=== PATIENT | female | born 1970 | race Two or more races ===

== ENCOUNTER → 2019-09-20 | Day surgery (SDC) | payer MEDICARE ==
[2019-09-20] VITALS (10 sets, daily range): BP systolic 115–160; BP diastolic 8–94
[~2019-09-20] VITALS: Ht 160 cm; Wt 53.1 kg
[~2019-09-20] MED LIST: Bacitracin 50000 Units Vial ONE; Bupivacaine 0.25% Inj 30ml INJ ONE; Ketorolac 30mg Inj ONE; LR 1000ml 1,000 ML IVLG SCH; LR 1000ml ONE; Lidocaine 1% Plain 30 ml INJ ONE; Meperidine 50mg/ml Inj(FOR RIGORS ONLY) IV PRN; Midazolam 2mg/2ml Inj ONE; NS Irrig 1000ml ONE; Propofol 200mg/20ml IV ONE; Sterile Water Irrig 1000ml IRRIG ONE; fentaNYL 100 mcg/2 mL IV ONE
--- NOTE | 2019-09-20 10:21 | Pre-Procedure Note/Attestation ---
Pre-Procedure Note/Attestation Complete Prior to Procedure Planned Procedure: right Procedure Narrative: Excision of right thumb cyst Attestation I attest that I discussed the nature of the procedure; its benefits; risks and complications; and alternatives (and the risks and benefits of such alternatives ), prior to the procedure, with the patient (or the patient's legal volunteer patient representative). I attest that, if there was a reasonable possibility of needing a blood transfusion, the patient (or the patient's legal volunteer patient representative) was given the [facility] standardized written summary, pursuant to the Jhonatan Ryan Blood Safety Act ([place] Health and Safety Code # 1645, as amended). I attest that I re-evaluated the patient just prior to the surgery and that there has been no change in the patient's H&P, except as documented below: Lew Ku MD Sep 20, 2019 10:20
--- NOTE | 2019-09-20 11:43 | Anethesia Preoperative Eval ---
Anesthesia Pre-op PMH/ROS General Date of Evaluation: Sep 20, 2019 Time of Evaluation: 10:58 Anesthesiologist: Mayito ASA Score: ASA 2 Mallampati Score Class I : Soft palate, uvula, fauces, pillars visible Class II: Soft palate, uvula, fauces visible Class III: Soft palate, base of uvula visible Class IV: Only hard plate visible Mallampati Classification: Class II Surgeon: Elmira Diagnosis: R thumb ganglion cyst Surgical Procedure: Excision of ganglion cyst Anesthesia History: none Family History: no anesthesia problems Allergies: Coded Allergies: LATEX (Verified Allergy, Severe, burning skin sensation, 09/20/19) OPIOIDS - MORPHINE ANALOGUES (Verified Adverse Reaction, Mild, ITCHING, ) Uncoded Allergies: OPIATES (Allergy, Severe, ITCHING, 09/20/19) Medications: see eMAR Patient NPO?: Yes Past Medical History Cardiovascular: Reports: HTN - borderline; Denies: CAD, NV, valve dz, arrhythmia, other Pulmonary: Denies: asthma, COPD, SANJAY, other Gastrointestinal/Genitourinary: Reports: GERD - mild; Denies: CRI, ESRD, other Neurologic/Psychiatric: Reports: other - chronic pain; Denies: dementia, CVA, depression/anxiety, TIA Endocrine: Denies: DM, hypothyroidism, steroids, other HEENT: Denies: cataract (L), cataract (R), glaucoma, [place] (L), [place] (R), other Hematology/Immune: Denies: anemia, DVT, bleeding disorder, other Musculoskeletal/Integumentary: Denies: OA, RA, DJD, DDD, edema, other PMH Narrative: as above PSxH Narrative: cosmetic Anesthesia Pre-op Phys. Exam Physician Exam Last Vital Signs Date Time Temp Pulse Resp B/P (MAP) Pulse Ox O2 Delivery O2 Flow Rate FiO2 09/20/19 11:00 98.0 94 20 143/8 99 Room Air Constitutional: NAD Neurologic: CN 2-12 intact Cardiovascular: RRR, no M/R/G Respiratory: CTA Gastrointestinal: S/NT/ND Airway Exam Mallampati Score: Class II MO: full Neck: flexible ROM: full Teeth: intact Dentures: no upper, no lower Anesthesia Pre-op A/P Labs Urine Test Test 09/20/19 10:20 Urine HCG, Qualitative Negative (NEGATIVE) Risk Assessment & Plan Assessment: ASA 2 Plan: MAC Pre-Antibiotics Drug: Anceef 1 gr Given Within 1 Hr of Incision: Yes Time Given: 11:20 Berry Edmond MD Sep 20, 2019 11:43
--- NOTE | 2019-09-20 11:55 | Operative Note - PDOC ---
Operative Note Operative Note Procedure: Right thumb cyst excision Surgeon: Elmira Anesthesia: local, MAC Specimen: yes Complications: none Condition: stable Estimated Blood Loss: none Drains: none Implant(s) used?: No Lew Ku MD Sep 20, 2019 11:55
--- NOTE | 2019-09-20 13:52 | Anethesia Preoperative Eval ---
Anesthesia Pre-op PMH/ROS General Date of Evaluation: Sep 20, 2019 Time of Evaluation: 10:40 Anesthesiologist: Mayito ASA Score: ASA 2 Mallampati Score Class I : Soft palate, uvula, fauces, pillars visible Class II: Soft palate, uvula, fauces visible Class III: Soft palate, base of uvula visible Class IV: Only hard plate visible Mallampati Classification: Class II Surgeon: Elmira Diagnosis: R thumb ganglion cyst Surgical Procedure: Excision of R thumb ganglion cyst Anesthesia History: none Allergies: Coded Allergies: LATEX (Verified Allergy, Severe, burning skin sensation, 09/20/19) OPIOIDS - MORPHINE ANALOGUES (Verified Adverse Reaction, Mild, ITCHING, ) Uncoded Allergies: OPIATES (Allergy, Severe, ITCHING, 09/20/19) Patient NPO?: Yes Anesthesia Pre-op Phys. Exam Physician Exam Last Vital Signs Date Time Temp Pulse Resp B/P (MAP) Pulse Ox O2 Delivery O2 Flow Rate FiO2 09/20/19 13:20 97.4 82 17 126/91 99 Room Air Airway Exam Mallampati Score: Class II Anesthesia Pre-op A/P Labs Urine Test Test 09/20/19 10:20 Urine HCG, Qualitative Negative (NEGATIVE) Berry Edmond MD Sep 20, 2019 13:52
--- NOTE | 2019-09-20 13:54 | Immediate Post-Op Evaluation ---
Immediate Post-Op Evalulation Immediate Post-Op Evalulation Procedure: Excision of R thumb ganglion cyst Date of Evaluation: Sep 20, 2019 Time of Evaluation: 12:02 IV Fluids: 1000 Blood Products: none Estimated Blood Loss: min Urinary Output: none Blood Pressure Systolic: 148 Blood Pressure Diastolic: 82 Pulse Rate: 68 Respiratory Rate: 20 O2 Sat by Pulse Oximetry: 99 Temperature (Fahrenheit): 97.6 Pain Score (1-10): 2 Nausea: No Vomiting: No Complications none Patient Status: awake, patent, none Hydration Status: adequate Berry Edmond MD Sep 20, 2019 13:54
--- NOTE | 2019-09-20 13:55 | 48 Hour Post Anesthesia Eval ---
Post Anesthesia Evaluation Procedure: Excision of R thumb ganglion cyst Date of Evaluation: Sep 20, 2019 Time of Evaluation: 13:54 Blood Pressure Systolic: 128 0: 62 Pulse Rate: 72 Respiratory Rate: 20 Temperature (Fahrenheit): 97.6 O2 Sat by Pulse Oximetry: 98 Airway: patent Nausea: No Vomiting: No Pain Intensity: 1 Hydration Status: adequate Cardiopulmonary Status: stable Mental Status/LOC: patient returned to baseline Follow-up Care/Observations: n/a Post-Anesthesia Complications: none Follow-up care needed: ready to discharge Berry Edmond MD Sep 20, 2019 13:55
--- NOTE | 2019-09-20 18:15 | Operative Note - Dictated ---
DATE OF OPERATION: 09/20/2019 PREOPERATIVE DIAGNOSIS: Right thumb ganglion cyst. POSTOPERATIVE DIAGNOSIS: Right thumb ganglion cyst. PROCEDURE: Excision of right thumb ganglion cyst. SURGEON: Lew Ku M.D. PORT CRANE OPERATOR: None. ANESTHESIA: Local with MAC sedation. TOURNIQUET TIME: 16 minutes. DISPOSITION: Stable to the recovery room. INDICATIONS FOR SURGERY: This is a 48-year-old female, who has had a 1 year history of an enlarging right thumb cyst over the dorsal ulnar aspect of her thumb, which has been causing her some discomfort and pain. Upon exam, it was consistent with a cyst likely ganglion cyst. She was consented to undergo excision of right thumb cyst. She understood the risks and benefits of surgery and agreed to proceed. DETAILS OF THE OPERATION: The patient was brought to the operating room and laid in the supine position on the operating table. Her right upper extremity was prepped and draped in a sterile usual fashion. A total of 5 mL of 1% lidocaine with epinephrine was injected at the base of the digit to perform a digital block. The tourniquet was then raised to 250 mmHg. A linear incision was made directly over the dorsal aspect of the thumb in the region of the mass. Dissection was carried out with tenotomy scissors. Care was taken to protect any branches of the digital nerve that were adjacent to and surrounding the mass with gentle dissection. These nerves were teased away and the mass was then dissected off of the underlying bed. It was firm in nature, but appeared to be consistent with a ganglion cyst. It was sent to pathology for confirmation. There is a possibility it could be another diagnosis, but given its appearance, ganglion cyst appears to be a likely diagnosis. The wound was then irrigated with bacitracin-soaked saline. The wound was closed with 4-0 Vicryl suture for the deep layer and multiple interrupted 4-0 Prolene sutures were used to close the skin. Compressive dressing was applied. The patient tolerated the procedure well. There were no complications. Lew Ku M.D. DR: FLAVIA JOB#: [id number] CC:
== END | disposition home or self-care (01) ==
LOC: SUR 10:10
DX: M67.48 Ganglion, other site (principal); Z91.040 Latex allergy status; Z88.6 Allergy status to analgesic agent
CPT/HCPCS: 26160; 81025; J0690; J1885; J2001; J2250; J2704; J3010; 94003; 94150